=== PATIENT | female | born 1990 | race Caucasian/White ===

== ENCOUNTER → 2020-04-25 13:00 | Outpatient (BNVA) | payer OTHER, SELFPAY | PROVIDERS: Visit Provider Nurse Practitioner | DX: K59.04 Chronic idiopathic constipation (principal); Z79.899 Other long term (current) drug therapy | CPT/HCPCS: Q3014 ==

== ENCOUNTER → 2020-12-29 14:22 | Outpatient (BNVA) | payer OTHER, SELFPAY | PROVIDERS: Visit Provider Nurse Practitioner ==

== ENCOUNTER 2021-03-09 09:52 | Emergency (ER) | payer OTHER, SELFPAY ==
--- NOTE | ~2021-03-09 | XR_ITS ---
EXAMINATION: XR CHEST CLINICAL INFORMATION: Cough and fever COMPARISON: None TECHNIQUE: Frontal view of the chest was obtained. FINDINGS: The lungs are well-expanded and clear. The heart size and pulmonary vascularity is normal. There is mild dextroscoliosis dorsal spine. No lytic process. XR/XR chest 1V IMPRESSION: Unremarkable chest exam. Mild dextroscoliosis dorsal spine. No lytic process.
[2021-03-09 10:04] VITALS: BP 125/80; BP 135/70; PULSE 94; PULSE 97; RESP 20; TEMP 37.6; O2SAT 100; O2SAT 98; BMI 38.9
--- NOTE | 2021-03-09 10:12 | ED.URI ---
HPI - URI/Sore Throat General Chief Complaint: Upper Respiratory Symptoms Stated Complaint: PT STS FEVER,96.6 PER EMS Time Seen by Provider: 03/09/21 10:06 Source: patient and EMS Mode of arrival: EMS Limitations: no limitations History of Present Illness HPI Narrative: 31-year-old female with a history mood disorder, insomnia, constipation, diverticulosis, who presents to the ER from home via ambulance with complaints of fever, shortness of breath, body aches and headache that started yesterday. She reports when she coughs her entire chest wall is sore and aching. She reports her boyfriend is also home and not feeling well. She is not vaccinated for COVID-19. She is not short of breath with exertion. She just does not feel good. She called 911 because her car is broken. MD elicited complaint: fever Onset (ago): day(s) (1) Consistency: constant Severity: moderate Able to tolerate fluids by mouth: Yes Exacerbating factors: nothing Relieving factors: nothing Context: sick contacts Associated symptoms: fever, headache, nasal congestion, sore throat and cough Treatments prior to arrival: none Related Data Home Medications Medication Instructions Recorded Confirmed docusate sodium 100 mg capsule 100 mg PO DAILY 04/25/20 04/25/20 (Colace) methylcellulose (with sugar) oral 1 tbsp PO BID 04/25/20 04/25/20 powder (Citrucel (sucrose)) Allergies Allergy/AdvReac Type Severity Reaction Status Date / Time No Known Allergies Allergy Verified 12/29/20 14:23 Review of Systems Review of Systems: Constitutional: + Fever, No Chills ENT/Mouth: + sore throat, No Rhinorrhea, No Swallowing Difficulty Cardiovascular: No Chest Pain, No SOB Respiratory: No Cough, No Sputum, No Wheezing, No dyspnea Gastrointestinal: No Nausea, No Vomiting, No Diarrhea, No abdominal Pain Genitourinary: No Dysuria, No Urinary Frequency, No Hematuria Musculoskeletal: No joint pain, No Myalgias Skin: No Skin Lesions, No rash Neuro: + Weakness, No Numbness, No Dizziness, + Headache Psych: No Anxiety/Panic, No Depression Heme/Lymph: No Bruising, No Lymphadenopathy PMFSH Past Medical History Attestation statement: The following information was validated with the patient. Medical History Diverticulitis Surgical History Hx of section (12/22/19) Hx of colonoscopy Family History Family History Father Diabetes Mother Alive and well Paternal Grandmother Breast cancer Social History Social History Household Members: Significant Other and Children Alcohol intake: current Alcohol intake frequency: does not drink Advance Directives: No Advance Directives Information Provided: No Physical Exam Vital Signs: Vital Signs: Last Vital Signs Temp 99.7 F 03/09/21 10:04 Pulse 97 03/09/21 10:04 Resp 20 03/09/21 10:04 BP 125/80 03/09/21 10:04 Pulse Ox 98 03/09/21 10:04 Body Mass Index 38.9 Appearance: Alert. Oriented X3. No acute distress. Eyes: Pupils equal, round and reactive to light. ENT: Pharynx normal. Neck: Normal inspection. Neck supple. CVS: Normal heart rate and rhythm. Pulses normal. Respiratory: No respiratory distress. Breath sounds normal. Abdomen: Soft and nontender. +BS x4 Skin: Skin warm and dry. Normal skin color. Normal skin turgor. No rashes. Extremities: No lower extremity edema. Neuro: Oriented X 3. Nonfocal, grossly normal. Course Course Course Narrative: 31-year-old female presents the ER with signs and symptoms of COVID-19. She is not vaccinated. She reports of fever, AMS temperature was 96.6 degrees. She is not vomiting or having abdominal pain. She has minimal shortness of breath and these occurs mostly when she is coughing. She also has some chest discomfort when coughing only. Doubt cardiac etiology. Doubt PE. Perc negative. Will get COVID swab and chest x-ray. Reevaluation(s) Reevaluation #1: Patient was found to be positive for COVID-19. Her chest x-ray is clear. Her oxygen saturations are 98%. She is not in any respiratory distress. Results were discussed with the patient as well as symptomatic management and signs and symptoms to prompt urgent re-evaluation. She is stable for discharge home with supportive care. MDM - URI/Sore Throat Lab Data Labs: Lab Results 03/09/21 Range/Units 10:28 COVID-19 (FLEX) Positive A (Negative) COVID-19 Clin Com See Note Critical Care Time Critical Care Time Critical Care Time: No Discharge Plan Discharge Clinical Impression: COVID-19 Patient Disposition: Home, Self-Care Instructions: Covid-19 Viral Syndrome and Novel Coronavirus (ED) Hey/Ath Additional Instructions: You were found to be COVID-19 POSITIVE today. Your chest x-ray and oxygen levels were normal. Rest. Drink plenty of fluids. Do not go out in public for the next 10 days. Take over the counter cold/flu medications as needed for your symptoms. Take Tylenol and/or Motrin as needed for fevers and body aches. Follow up with your doctor this week. If you shortness of breath worsens , if you develop difficulty breathing or any other concerning symptom come back to the ER for further evaluation. Prescriptions: No Action docusate sodium [Colace] 100 mg capsule 100 mg PO DAILY RF: 0 Citrucel (sucrose) Powder 1 tbsp PO BID RF: 0
[2021-03-09 10:56] LABS: COVID-19 Test Positive (Negative); IDNOW Serial# 9DD0AD1C
[2021-03-09 11:34] VITALS: BP 108/72; PULSE 79; RESP 19; O2SAT 99
[2021-03-09 11:46] LABS: UPreg QC Valid YES; Urine Pregnancy NEGATIVE (NEGATIVE)
== END 2021-03-09 12:16 | disposition home or self-care (01) ==
PROVIDERS: Physician Assistant; Emergency Provider Emergency Medicine; PCP Internal Medicine
DX: U07.1 COVID-19 (principal)
CPT/HCPCS: 36415; 71045; 81025; 87635; 99283

== ENCOUNTER 2021-04-13 13:02 | Outpatient (REF) | payer OTHER, SELFPAY ==
[2021-04-14 14:34] LABS: CT PCR NOT DETECTED (Not Detect.); NG PCR NOT DETECTED (Not Detect.)
[2021-04-15 12:02] LABS: BV Int Neg Control Negative (Negative); BV Int Pos Control Positive (Positive)
[2021-04-19 02:21] LABS: HPV mRNA E6/E7 rflx Not Detected (Not Detected)
== END 2021-04-13 13:03 | disposition home or self-care (01) ==
LOC: HO.LAB 13:02
PROVIDERS: Visit Provider Advanced Practice Midwife
DX: Z01.419 Encounter for gynecological examination (general) (routine) without abnormal findings (principal); E66.01 Morbid (severe) obesity due to excess calories; Z68.42 Body mass index [BMI] 45.0-49.9, adult; Z20.2 Contact with and (suspected) exposure to infections with a predominantly sexual mode of transmission; Z86.32 Personal history of gestational diabetes; Z79.899 Other long term (current) drug therapy
CPT/HCPCS: 87480; 87491; 87510; 87591; 87624; 87660; 88142

== ENCOUNTER 2023-05-31 12:50 | Outpatient (REF) | payer OTHER, SELFPAY ==
[2023-05-31 14:29] LABS: MANUAL DIFF FLAG NO
[2023-05-31 14:35] LABS: Basophils Percent Auto 0.4 % (0-2); Eosinophils Absolute Auto 0.1 X10*3/uL (0.0-0.4); Eosinophils Percent Auto 1.8 % (0-4); Hemoglobin 10.1 g/dl (12.0-16.0); Imm Gran Abs Auto 0.02 X10*3/uL (0.00-0.03); Imm Gran Pct Auto 0.3 % (0.0-0.4); Lymphocytes Absolute Auto 1.8 X10*3/uL (1.2-4.9); Lymphocytes Percent Auto 23.9 % (20-40); Mean Corpuscular HGB Conc 31.6 g/dl (31.0-35.0); Mean Corpuscular Volume 76.2 fL (80.0-98.0); Mean Platelet Volume 11.3 fL (9.4-12.3); Monocytes Absolute Auto 0.6 X10*3/uL (0.1-1.2); Monocytes Percent Auto 7.4 % (2-11); Neutrophils Absolute Auto 4.9 x10*3/uL (2.0-8.3); Neutrophils Percent Auto 66.2 % (45-73); Platelet Count 340 X10*3/uL (160-400); Red Cell Distribution Width 15.6 % (11.0-16.0); White Blood Count 7.4 X10*3/uL (4.8-10.8)
[2023-05-31 15:02] LABS: Alanine Aminotransferase 13 U/L (0-31); Albumin Level 4.1 g/dL (3.5-5.0); Alkaline Phosphatase 86 U/L (39-117); Anion Gap 13 (12-20); Aspartate Amino Transferase 12 U/L (5-31); Bilirubin Total 0.3 mg/dL (0.0-1.0); Blood Urea Nitrogen 8 mg/dL (9-16); Calcium 9.2 mg/dL (8.4-10.2); Carbon Dioxide 25 mmol/L (22-29); Chloride 105 mmol/L (96-108); Cholesterol 112 mg/dL (<200); Estimated Glomerular Filt Rate > 60; Glucose Random 83 mg/dL (60-115); HDL Cholesterol 32 mg/dL (>40); LDL Cholesterol Calculated 64 mg/dL (<100); Potassium 4.1 mmol/L (3.3-5.1); Sodium 139 mmol/L (135-145); Total Protein 7.5 g/dL (6.5-8.0); Triglycerides 80 mg/dL (<150)
[2023-06-03 03:54] LABS: HIV AB/AG Nonreactive (Nonreactive); HIV Num 1 0.05 S/CO (0.00-0.99); ~HepC Num1 0.12 S/CO (0.00-0.79); ~Hepatitis C Antibody Nonreactive (Nonreactive)
== END 2023-05-31 12:51 | disposition home or self-care (01) ==
LOC: HO.CHCLDS 12:50
PROVIDERS: Visit Provider Family Medicine
DX: E66.01 Morbid (severe) obesity due to excess calories (principal)
CPT/HCPCS: 36415; 80053; 80061; 84443; 85025; 86803; 87389

== ENCOUNTER 2024-06-29 10:46 | Outpatient (REF) | payer OTHER, SELFPAY ==
[2024-06-29 14:29] LABS: MANUAL DIFF FLAG NO
[2024-06-29 14:38] LABS: Basophils Absolute Auto 0.1 X10*3/uL (0.0-0.2); Basophils Percent Auto 0.6 % (0-2); Eosinophils Absolute Auto 0.3 X10*3/uL (0.0-0.4); Eosinophils Percent Auto 3.2 % (0-4); Hematocrit 33.8 % (37.0-47.0); Hemoglobin 10.8 g/dl (12.0-16.0); Imm Gran Abs Auto 0.03 X10*3/uL (0.00-0.03); Imm Gran Pct Auto 0.3 % (0.0-0.4); Lymphocytes Absolute Auto 3.2 X10*3/uL (1.2-4.9); Lymphocytes Percent Auto 36.8 % (20-40); Mean Corpuscular Hemoglobin 25.2 pg (27.0-33.0); Mean Platelet Volume 11.5 fL (9.4-12.3); Monocytes Absolute Auto 0.6 X10*3/uL (0.1-1.2); Monocytes Percent Auto 6.9 % (2-11); Neutrophils Absolute Auto 4.6 x10*3/uL (2.0-8.3); Neutrophils Percent Auto 52.2 % (45-73); Platelet Count 313 X10*3/uL (160-400); Red Blood Count 4.28 X10*6/uL (4.20-5.50); Red Cell Distribution Width 17.3 % (11.0-16.0); White Blood Count 8.8 X10*3/uL (4.8-10.8)
[2024-06-29 15:14] LABS: Alanine Aminotransferase 9 U/L (0-31); Anion Gap 15 (12-20); Aspartate Amino Transferase 31 U/L (5-31); Bilirubin Total 0.2 mg/dL (0.0-1.0); Blood Urea Nitrogen 9 mg/dL (9-16); Calcium 9.3 mg/dL (8.4-10.2); Carbon Dioxide 24 mmol/L (22-29); Chloride 107 mmol/L (96-108); Cholesterol 139 mg/dL (<200); Estimated Glomerular Filt Rate > 60; Glucose Random 80 mg/dL (60-115); HDL Cholesterol 57 mg/dL (>40); Iron 23 mcg/dL (30-160); LDL Cholesterol Calculated 61 mg/dL (<100); Percent Iron Saturation 6 % (15-50); Potassium 3.8 mmol/L (3.3-5.1); Sodium 142 mmol/L (135-145); Total Iron Binding Capacity 366 mcg/dL (228-428); Total Protein 7.5 g/dL (6.5-8.0); Triglycerides 107 mg/dL (<150); Unsaturated Iron Binding 343 ug/dL
[2024-06-29 15:27] LABS: Ferritin 6 ng/mL (10-122); TSH reflex Free T4 2.44 uIU/mL (0.32-4.0)
--- OUTSIDE RECORDS SUMMARY | 2024-06-29 15:34 | XMS_ITS | Encounter Summary ---
Author Organization [employer] Address [address] [facility] [address] [place] [address] Care Team Providers Care Skein Spooler Name Role Phone Lucy Whitlock MD Primary Care Provider [phone] Reason for Visit * Reason Onset Date Comments Referral 03/17/2024 Encounter Details Date Type Department Care Team ([facility] st Contact Info) Description 03/17/2024 Telephone [facility] MEDICINE [address] [place] [address] Lucy Whitlock MD [address] [place] [address] Referral Social History Tobacco Use Types Packs/Day Years Used Date Smoking Tobacco: Never Passive Smoke Exposure: Never Smokeless Tobacco: Never Alcohol Use Standard Drinks/Week Comments Never 0 (1 standard drink = 0.6 oz pur e alcohol) Depression Answer Date Recorded Patient Health Questionnaire-9 Score 10 05/31/2023 Patient Health Questionnaire-9 Score 10 05/31/2023 Last PHQ-9: Questionnaire Data Not on file 1 Housing Stability Answer Date Recorded What is your housing situation today? I have nora hoang 05/21/[address] you li ve. Do you have problems with any of the following? None of the above 05/21/2023 Food Insecurity Answer Date Recorded Within the past 12 months, y ou worried that your food would run out before you got money to buy more: Never True 05/21/2023 Within the past 12 months,th e food you bought just didn't last and you didn't have enough money to get more: Never True Transportation Answer Date Recorded In the past 12 months, has l ack of transportation kept you from medical appts, meetings, work or from getting things needed for daily living? No 05/21/2023 Utilities Answer Date Recorded In the past 12 months, has t he electric, gas, oil or water company threatened to shut off services in your home? No 05/21/2023 Depression Answer Date Recorded Patient Health Questionnaire-2 Score 3 05/31/2023 Comments Unknown Sex and Gender Information Value Date Recorded Sex Assigned at Female 04/02/2022 10:14 AM EDT Legal Sex Female 10:14 AM EDT Gender Identity Female 04/02/2022 10:14 AM EDT Sexual Orientation Choose not to disclose 2021 10:14 AM EDT documented as of this encounter Miscellaneous Notes * Telephone Encounter - Bronwyn Ribeiro RN - 03/20/2024 10:35 AM EDT Referral placed to [facility] eye care for routine eye exam. * Telephone Encounter - Sami Salamanca - 03/17/2024 11:12 AM EDT Tc from patient request a referral for the vision center there is no concerns at the moment documented in this encounter Plan of Treatment Upcoming Encounters Date Type Department Care Team (Late st Contact Info) Description 07/30/2024 11:00 AM EST Procedure Visit [facility] CHC MED & PEDS [address] [place] [address] Estelle Carbajal, CNM [address] [place] [address] 10/08/2024 2:30 PM EDT Office Visit [facility] OPTOMETRY [address] [place] [address] Melonie Islas, OD [address] [place] [address] documented as of this encounter Visit Diagnoses Not on filedocumented in this encounter Additional Health Concerns Assessment Noted Time PHQ-9 Depression Total Score: 10 023 11:41 AM EST documented as of this encounter Care Teams Skein Spooler Relationship Specialty Start Date End Date Lucy Whitlock MD [address] [place] [address] PCP - General Family Medicine 02/07/22 Markus Casillas NP Nurse Practitioner Psychiatry 05/31/23 documented as of this encounter
--- OUTSIDE RECORDS SUMMARY | 2024-06-29 15:35 | XMS_ITS | Encounter Summary ---
Author Organization [employer] [facility] Address [address] [place] [address] Care Team Providers Care Pantograph Ii Engraver Name Role Phone Lucy Whitlock MD Primary Care Provider [phone] Encounter Details Date Type Department Care Team (Late st Contact Info) Description 05/01/2022 Abstract [facility] MEDICINE [address] [place] [address] Provider, MD Flynn Social History Tobacco Use Types Packs/Day Years Used Date Smoking Tobacco: Never Assessed Comments Unknown Sex and Gender Information Value Date Recorded Sex Assigned at Female 04/02/2022 10:14 AM EDT Legal Sex Female 10:14 AM EDT Gender Identity Female 04/02/2022 10:14 AM EDT Sexual Orientation Choose not to disclose 2021 10:14 AM EDT documented as of this encounter Plan of Treatment Upcoming Encounters Date Type Department Care Team (Late Contact Info) Description 07/30/2024 11:00 AM EST Procedure Visit [facility] CHC MED & PEDS [address] [place] [address] Estelle Carbajal CNM [address] [place] [address] 10/08/2024 2:30 PM EDT Office Visit [facility] OPTOMETRY [address] [place] [address] Melonie Islas OD [address] [place] [address] documented as of this encounter Visit Diagnoses Not on filedocumented in this encounter Care Teams Pantograph Ii Engraver Relationship Specialty Start Date End Date Lucy Whitlock MD [address] [place] [address] PCP - General Family Medicine 02/07/22 Markus Casillas NP Nurse Practitioner Psychiatry 05/31/23 documented as of this encounter
--- OUTSIDE RECORDS SUMMARY | 2024-06-29 15:35 | XMS_ITS | Encounter Summary ---
Author Organization [employer] Address [address] [place] [address] [address] [address] Care Team Providers Care Occupational Health Physician Name Role Phone Lucy Whitlock MD Primary Care Provider [phone] Reason for Visit * Reason Comments Constipation Extended office visit Encounter Details Date Type Department Care Team ([facility] Contact Info) Description 06/29/2024 9:30 AM EST Office Visit [facility] [address] [place] [address] Jarocho Dela Cruz MD [address] [place] [address] Other constipation (Primary Dx); Other iron deficiency anemia; Dietary counseling; Exercise counseling; Class 3 severe obesity due to excess calories with serious comorbidity and body mass index (BMI) of 45.0 to 49.9 in adult (CMS/HCC); Bilateral impacted cerumen; Encounter for immunization Social History Tobacco Use Types Packs/Day Years Used Date Smoking Tobacco: Never Passive Smoke Exposure: Never Smokeless Tobacco: Never Alcohol Use Standard Drinks/Week Comments Never 0 (1 standard drink = 0.6 oz pur e alcohol) Depression Answer Date Recorded Patient Health Questionnaire-9 Score 11 06/29/2024 Patient Health Questionnaire-9 Score 11 06/29/2024 Last PHQ-9: Questionnaire Data Not on file 0 06/29/2024 Housing Stability Answer Date Recorded What is [...] from getting things needed for daily living? Yes, it has kept me from medical appointments or getting medications. 06/29/2024 Utilities Answer Date Recorded In the past 12 months, has t he [employer], gas, oil or water company threatened to shut off services in your home? No 05/21/2023 Depression Answer Date Recorded Patient Health Questionnaire-2 Score 2 06/29/2024 Internet Access Answer Date Recorded Internet Access Q1 Yes 06/18/2024 Internet Access Q2 Not on file 06/18/2024 Comments Unknown Sex and Gender Information Value Date Recorded Sex Assigned at Female 04/02/2022 10:14 AM EDT Legal Sex Female 10:14 AM EDT Gender Identity Female 04/02/2022 10:14 AM EDT Sexual Orientation Choose not to disclose 2021 10:14 AM EDT documented as of this encounter Last Filed Vital Signs Vital Sign Reading Time Taken Comments Blood Pressure 129/77 06/29/2024 9:50 AM EST Pulse 92 06/29/2024 9:50 AM EST Temperature 36.8 ??C (98.2 ??F) 06/29/2024 9:50 AM ES T Respiratory Rate 20 06/29/2024 9:50 AM EST Oxygen Saturation 98% 06/29/2024 9:50 AM EST Inhaled Oxygen Concentration - - Weight 112 kg (247 lb) 06/29/2024 9:50 AM EST Height 157.5 cm (5' 2 ) 06/29/2024 9:50 AM EST Body Mass Index 45.18 06/29/2024 9:50 AM EST documented in this encounter Progress Notes * Jarocho Dela Cruz MD - 06/29/2024 9:30 AM EST Subjective Patient ID: Coco Tejeda is a 34 y.o. female who presents for Constipation and Extended office visit. Constipation Pertinent negatives include no diarrhea or difficulty urinating. Denies any acute events since her last visit. Only complaining of constipation. Patient admits her diet poor in fiber and not drinking water. Patient Active Problem List Diagnosis Diverticula of intestine Iron deficiency anemia Mood disorder (CMS/HCC) Morbid obesity (CMS/HCC) Anxiety and depression Learning disability Developmental delay disorder Sleep apnea in adult Current Outpatient Medications on File Prior to Visit Medication Sig Dispense Refill clobetasol (Temovate) 0.05 % ointment Apply topically 2 times daily. 60 g 2 FLUoxetine (PROzac) 20 MG capsule Take 20 mg by mouth in the morning. fluticasone (Flonase) 50 MCG/ACT nasal spray TAKE 1 SPRAYS IN EACH NOSTRIL 2 TIMES PER DAY FOR 30 DAYS naproxen (Naprosyn) 500 MG tablet TAKE 1 TABLET BY MOUTH TWICE A DAY 60 tablet 0 traZODone (Desyrel) 50 MG tablet Take 50 mg by mouth if needed at bedtime. No current facility-administered medications on file prior to visit. Review of Systems Constitutional: Negative for activity change, appetite change, chills and diaphoresis. HENT: Negative for dental problem, drooling, ear discharge, ear pain and hearing loss. Eyes: Negative for pain, discharge and itching. Respiratory: Negative for cough, choking and chest tightness. Cardiovascular: Negative for chest pain and leg swelling. Gastrointestinal: Positive for constipation. Negative for blood in stool and diarrhea. Genitourinary: Negative for difficulty urinating, dyspareunia, dysuria, enuresis, flank pain, frequency and genital sores. Musculoskeletal: Negative for arthralgias, gait problem and joint swelling. Skin: Negative for pallor. Neurological: Negative for dizziness, seizures, speech difficulty, light- headedness and numbness. Psychiatric/Behavioral: Negative for behavioral problems, confusion and decreased concentration. Objective BP 129/77 (BP Location: Left arm, Patient Position: Sitting, BP Cuff Size: Adult) Pulse 92 Temp98.2 ??F (36.8 ??C) (Oral) Resp 20 Ht 5' 2 (1.575 m) Wt 247 lb (112 kg) SpO2 98% BMI 45.18 kg/m?? Physical Exam Constitutional: General: She is not in acute distress. Appearance: Normal appearance. She is obese. She is not ill-appearing, toxic- appearing or diaphoretic. Cardiovascular: Rate and Rhythm: Normal rate. Pulmonary: Effort: Pulmonary effort is normal. Abdominal: General: Abdomen is flat. Skin: General: Skin is warm. Neurological: General: No focal deficit present. Mental Status: She is alert. Psychiatric: Mood and Affect: Mood normal. Assessment/Plan Diagnoses and all orders for this visit: Other constipation Comments: Increase fluid intake and fiber intake Orders: - bisacodyl (Dulcolax) 5 MG EC tablet; Take 1 tablet (5 mg) by mouth if needed each day for constipation. Do not crush, chew, or split. Other iron deficiency anemia Comments: a work up was ordered. Not done yeat Pt urged to hae her blood work today. Further management depending on the results. Dietary counseling Exercise counseling Class 3 severe obesity due to excess calories with serious comorbidity and body mass index (BMI) of45.0 to 49.9 in adult (CMS/[facility]) Discussed calorie deficit, recommended reduction of 20-30% of maintenance calories; pharmacy coordinator referral offered. Recommended to decrease soda and sugary beverage consumption. Recommended at least 20 g per meal of protein to assist with satiety. Recommended at least 150 min/week of moderate intensity exercise. Bilateral impacted cerumen - carbamide peroxide (Debrox) 6.5 % otic solution; Administer 5-10 drops into affected ear(s) 2 times daily for 4 days. Encounter for immunization - FLU VACCINE TRIVALENT (Fluarix) 6 mo + - COVID-19 VACCINE (Pfizer) [id number] 12 yrs + documented in this encounter Plan of Treatment Upcoming Encounters Date Type Department Care Team (Late st Contact Info) Description 07/30/2024 11:00 AM EST Procedure Visit [facility] CHC MED & PEDS [address] [place] [address] Estelle Carbajal, C[facility]COM [address] [place], [place] [id number] 10/08/2024 2:30 PM EDT Office Visit [facility] OPTOMETRY [address] [place] [address] Melonie Islas, OD [address] [place] [address] documented as of this encounter Visit Diagnoses Diagnosis Other constipation- Primary Other iron deficiency anemia Dietary counseling Dietary surveillance and counseling Exercise counseling Class 3 severe obesity due to excess calories with serious comorbidity and body mass index (BMI) of 45.0 to 49.9 in adult (CMS/[facility]) Bilateral impacted cerumen Impacted cerumen Encounter for immunization documented in this encounter Additional Health Concerns Assessment Noted Time PHQ-9 Depression Total Score: 11 025 10:45 AM EST documented as of this encounter Care Teams Occupational Health Physician Relationship Specialty Start Date End Date Lucy Whitlock MD [address] [place] [address] PCP - General Family Medicine 02/07/22 Markus Casillas NP Nurse Practitioner Psychiatry 05/31/23 documented as of this encounter
--- OUTSIDE RECORDS SUMMARY | 2024-06-29 15:35 | XMS_ITS | Clinical Summary ---
Author Organization [facility] ity Address [address] [place] [address] Care Team Providers Care Mathematician Research Name Role Phone Unavailable Primary Care Provider Unavailabl e Encounters Date Type Department Care Team Description 03/30/2024 1:18 PM EDT - 03/30/2024 6:39 PM EDT Emergency [facility] Emergency [address] [place] [phone] Vinicius Gregory MD Pneumonia, unspecified organism Discharge Disposition: Home or Self Care from Last 3 Months Social History Tobacco Use Types Packs/Day Years Used Date Smoking Tobacco: Never Assessed Sex and Gender Information Value Date Recorded Sex Assigned at Not on file Gender Identity Not on file Sexual Orientation Not on file Plan of Treatment Health Maintenance Due Date Last Done Comments DTaP,Tdap,and Td Vaccines (1 - Tdap) 02/21/2008 Hepatitis B Vaccines (1 of 3 - 19+ 3-dose series) 02/21/2008 Cervical Cancer Screening: P ap Smear 2010 Depression Screening 06/27/2023 HIV Screening 06/27/2023 Hepatitis C Screening 06/27/2023 Social Influencers of Health Screening 06/27/2023 COVID-19 Vaccine (1 - 2023-2 5 season) 2024 Influenza Vaccine (#1) 2024 HIB Vaccines Aged Out No longer eligi ble based on patient's age to complete this topic HPV Vaccines Aged Out No longer eligi ble based on patient's age to complete this topic Hepatitis A Vaccines Aged Out No long er eligible based on patient's age to complete this topic IPV Vaccines Aged Out No longer eligi ble based on patient's age to complete this topic MMR Vaccines Aged Out No longer eligi ble based on patient's age to complete this topic Meningococcal ACWY Vaccine Aged Out N o longer eligible based on patient's age to complete this topic Pneumococcal Vaccine: Pediat rics (0 to 5 Years) and At-Risk Patients (6 to 64 Years) Aged Out No longer eligible b ased on patient's age to complete this topic RSV Immunization Patients Un andrew 20 months Aged Out No longer eligible b ased on patient's age to complete this topic Varicella Vaccines Aged Out No longer eligible based on patient's age to complete this topic Procedures Procedure Name Priority Date/Time Associated Diagnosis Comments ELECTROCARDIOGRAM Routine 03/30/2024 3:1 8 PM EDT Pneumonia, unspecified organism DR CHEST ROUTINE 2 VIEWS Routine 024 3:05 PM EDT Pneumonia, unspecified organism ECG 03/30/2024 from Last 3 Months Results * Electrocardiogram (03/30/2024 3:18 PM EDT) 03/30/2024 1:10 PM EDT Narrative CV HISTORICAL RESULTS - 03/30/2024 3:18 PM EDT [facility] Cardiology Department [address] [place] [address] ?? [id number] Cardiology Patient: ?? COCO TEJEDA Unit #: ?? [id number] Location: ?? SPER Status: ?? REG ER Date Of : ?? 1990 ?? 34 ?? F Ordering Physician: ?? ER,DOC Order Date/Time: ??03/30/24 1310 Performed Date/Time: ??03/30/24 1329 Electrocardiogram Test Reason : Pain Blood Pressure : / mmHG Vent. Rate : 097 BPM ? Atrial Rate : 097 BPM P-R Int : 156 ms ?QRS Dur : 074 ms QT Int : 328 ms ? P-R-T Axes : 043 028 045 degrees QTc Int : 416 ms Normal sinus rhythm Normal ECG When compared with ECG of 25-JAN-2023 13:42, No significant change was found Confirmed by Jared BOLIVAR JOHN ([id number]) on 03/30/2024 3:17:43 PM Referred By: ??ERDOC ? Confirmed By:TERESA BOLIVAR M.D. Dictating Provider: ??TERESA BOLIVAR MD Transcribed by: ?? JM Transcribed Date: Procedure Note Teresa Bolivar MD - 04/04/2024 [facility] Cardiology Department [address] [place] [address] Cardiology Patient: COCO TEJEDA Unit #: [id number] Location: SPER Status: REG ER Date Of : 1990 34 F Ordering Physician: CHEO HICKS Order Date/Time: 03/30/24 1310 Performed Date/Time: 03/30/24 1329 Electrocardiogram Test Reason : Pain Blood Pressure : / mmHG Vent. Rate : 097 BPM Atrial Rate : 097 BPM P-R Int : 156 ms QRS Dur : 074 ms QT Int : 328 ms P-R-T Axes : 043 028 045 degrees QTc Int : 416 ms Normal sinus rhythm Normal ECG When compared with ECG of 25-JAN-2023 13:42, No significant change was found Confirmed by Jared BOLIVAR JOHN ([id number]) on 03/30/2024 3:17:43 PM Referred By: CATHY Confirmed By:TERESA BOLIVAR M.D. Dictating Provider: TERESA BOLIVAR MD Transcribed by: VINICIO Transcribed Date: Cardiovascular Results Historical MD CV HISTORICAL CONV PROCEDURES CV HISTORICAL RESULTS * CHEST ROUTINE 2 VIEWS (03/30/2024 3:05 PM EDT) Anatomical Region Laterality Modality Radiographic Leida ging 03/30/2024 1:10 PM EDT Narrative 03/30/2024 3:05 PM EDT [facility] Diagnostic Imaging Department [address] [place], [place] [id number] Patient: ??BIGIO,COCO ?/Age/Sex: 1990 - 34 - Unit#: ??[id number] ? Location/Status: ??SPER/REG ER ? Mnemonic/Ordering Site: ??CHESTXR/SPMAIN Ordering Physician: ??ER,DOC DR Chest Routine 2 Views - 03/30/241442 Report Status:Signed DR Chest Routine 2 Views INDICATION: ??Pain TECHNIQUE: DR Chest Routine 2 Views COMPARISON: 01/25/2023 FINDINGS/IMPRESSION: Patchy opacity in the right upper lobe suspicious for pneumonia. ??No pleural effusion or pneumothorax. ??Cardiac silhouette is enlarged. ??Mild degenerative change seen throughout the bones. Dictating Physician: ??TIP ALBA MD Electronically Signed by: ??TIP ALBA MD Dic Date/Time: ??03/30/24 9969 Sign date/Time: ??03/30/24 6478 Procedure Note Tip Alba MD - 04/04/2024 [facility] Diagnostic Imaging Department [address] [place] [address] Patient: COCO TEJEDA /Age/Sex: 1990 - 34 - F Unit#: [id number] Location/Status: SPER/REG ER Mnemonic/Ordering Site: CHESTXR/SPMAIN Ordering Physician: ER,DOC DR Chest Routine 2 Views - 03/30/24 - 1442 Report Status:Signed DR Chest Routine 2 Views INDICATION: Pain TECHNIQUE: DR Chest Routine 2 Views COMPARISON: 01/25/2023 FINDINGS/IMPRESSION: Patchy opacity in the right upper lobe suspiciousfor pneumonia. No pleural effusion or pneumothorax. Cardiac silhouette is enlarged. Mild degenerative change seen throughout the bones. Dictating Physician: TIP ALBA MD Electronically Signed by: TIP ALBA MD Dic Date/Time: 03/30/24 1456 Sign date/Time: 03/30/24 1505 Radiology Results Historical IMG XR P ROCEDURES * ECG (03/30/2024) Provider Onbase CV HISTORICAL CONV P ROCEDURES from Last 3 Months
--- OUTSIDE RECORDS SUMMARY | 2024-06-29 15:35 | XMS_ITS | Encounter Summary ---
Author Organization [employer] Address [address] [facility] [address] [place] [address] Care Team Providers Care Retaining Room Cutter Name Role Phone Lucy Whitlock MD Primary Care Provider [phone] Reason for Visit * Reason Comments Pre-visit Planning SDOH negative, Tobac co screening negative. Encounter Details Date Type Department Care Team ([facility] Contact Info) Description 06/18/2024 Patient Outreach [facility] MED & PEDS [address] [place], [place] [phone] Lucy Whitlock MD [address] [place] [address] Pre-visit Planning (SDOH negative, Tobacco screening negative. ) Social History Tobacco Use Types Packs/Day Years Used Date Smoking Tobacco: Never Passive Smoke Exposure: Never Smokeless Tobacco: Never Alcohol Use Standard Drinks/Week Comments Never 0 (1 standard drink = 0.6 oz pur e alcohol) Depression Answer Date Recorded Patient Health Questionnaire-9 Score 2 05/07/2024 Patient Health Questionnaire-9 Score 2 05/07/2024 Last PHQ-9: Questionnaire Data Not on file 1 07/08/2023 Housing Stability Answer Date Recorded What is [...] Answer Date Recorded Patient Health Questionnaire-2 Score 0 05/07/2024 Internet Access Answer Date Recorded Internet Access Q1 Yes 06/18/2024 Internet Access Q2 Not on file 06/18/2024 Comments Unknown Sex and Gender Information Value Date Recorded Sex Assigned at Female 04/02/2022 10:14 AM EDT Legal Sex Female 10:14 AM EDT Gender Identity Female 04/02/2022 10:14 AM EDT Sexual Orientation Choose not to disclose 2021 10:14 AM EDT documented as of this encounter Progress Notes * Amber Boston - 06/18/2024 10:32 AM EST CC Amber Chen placed successful outbound call to patient for pre-visit planning. Patient name and confirmed. Patient confirms appt date and time, and has transportation arrangements. Biggest concern for appointment at this time is diverticulitis. Appropriate screenings completed in anticipationof appointment. documented in this encounter Plan of Treatment Upcoming Encounters Date Type Department Care Team (Late st Contact Info) Description 07/30/2024 11:00 AM EST Procedure Visit [facility] MED [facility] PEDS [address] [place] [address] Estelle Carbajal, CNM [address] [place] [address] 10/08/2024 2:30 PM EDT Office Visit [facility] OPTOMETRY [address] [place] [address] Melonie Islas, OD [address] [place] [address] documented as of this encounter Visit Diagnoses Not on filedocumented in this encounter Additional Health Concerns Assessment Noted Time PHQ-9 Depression Total Score: 2 05/07/20 24 2:33 PM EST documented as of this encounter Care Teams Retaining Room Cutter Relationship Specialty Start Date End Date Lucy Whitlock MD [address] [place] [address] PCP - General Family Medicine 02/07/22 Markus Casillas NP Nurse Practitioner Psychiatry 05/31/23 documented as of this encounter
--- OUTSIDE RECORDS SUMMARY | 2024-06-29 15:35 | XMS_ITS | Encounter Summary ---
Author Organization [employer] Address [address] [facility] [address] [place] [address] Care Team Providers Care Scratch Brusher Name Role Phone Lucy Whitlock MD Primary Care Provider Encounter Details Date Type Department Care Team (Latest Contact Info) Description 06/29/2024 Travel Social History Tobacco Use Types Packs/Day Years [...] Description 07/30/2024 11:00 AM EST Procedure Visit [facility] CHC MED & PEDS [address] [place] [address] Estelle Carbajal CNM [address] [place] [address] 10/08/2024 2:30 PM EDT Office Visit [facility] OPTOMETRY [address] [place] [address] Roshan, Melonie, OD [address] [place] [address] documented as of this encounter Visit Diagnoses Not on filedocumented in this encounter Additional Health Concerns Assessment Noted Time PHQ-9 Depression Total Score: 11 025 10:45 AM EST documented as of this encounter Care Teams Scratch Brusher Relationship Specialty Start Date End Date Lucy Whitlock MD [address] [place] [address] PCP - General Family Medicine 02/07/22 Markus Casillas NP Nurse Practitioner Psychiatry 05/31/23 documented as of this encounter
--- OUTSIDE RECORDS SUMMARY | 2024-06-29 15:35 | XMS_ITS | Clinical Summary ---
Author Organization [employer] Address [address] [place] [address] 7 [place] [address] Care Team Providers Care Ivory Polisher Name Role Phone Lucy Whitlock MD Primary Care Provider [phone] Allergies No known active allergies Medications traZODone (Desyrel) 50 MG tablet Take 50 mg by mouth if needed at bedtime. 3 Active FLUoxetine (PROzac) 20 MG capsule Take 20 mg by mouth in the morning. 3 Active clobetasol (Temovate) 0.05 % ointment Apply topically 2 times daily. 60 g 2 4 Active fluticasone (Flonase) 50 MCG/ACT nasal spray TAKE 1 SPRAYS IN EACH NOSTRIL 2 TIMES PER DAY FOR 30 DAYS 4 Active naproxen (Naprosyn) 500 MG tablet TAKE 1 TABLET BY MOUTH TWICE A DAY 60 tablet 4 Active bisacodyl (Dulcolax) 5 MG EC tabletIndications :Other constipation Take 1 tablet (5 mg) by mouth if needed each day for constipation. Do not crush, chew, or split. 30 tablet 5 07/29/19 25 Active carbamide peroxide (Debrox) 6.5 % otic solutionIndicatio ns:Bilateral impacted cerumen Administer 5-10 drops into affected ear(s) 2 times daily for 4 days. 30 mL 5 07/03/19 25 Active Active Problems Problem Noted Date Diagnosed Date Developmental delay disorder 05/31/2023 Sleep apnea in adult 05/31/2023 Assessment & Plan (05/07/2024 2:39 PM EST): 33 yo F with a hx of loud snoring, sleepiness during they day and apneic episodes, neck circumference of 41 cm, she is morbidly obese, test for sleep apnea, send to [facility] Assessment & Plan (06/04/2023 2:05 PM EST): STOP-BANG high risk, will send for home sleep study, + apneic episodes, snoring, daytime sleepiness Anxiety and depression 01/08/2023 Assessment & Plan (05/07/2024 3:08 PM EST): Continue to follow up with Therapist and Psychiatrist. Learning disability 01/08/2023 Iron deficiency anemia 05/04/2022 Assessment & Plan (05/07/2024 3:07 PM EST): Will order lab work for further evaluation and assess post results if iron supplements are still needed. Diverticula of intestine 01/11/2017 Assessment & Plan (05/07/2024 2:51 PM EST): 33 yo F with a hx of diverticulosis, request referral to GI in [facility] Assessment & Plan (06/04/2023 2:04 PM EST): Patient requested GI referral, prior hx of diverticulosis, not current symptomatic. Mood disorder 01/11/2017 Morbid obesity 01/11/2017 Assessment & Plan (06/04/2023 2:05 PM EST): Discussed calorie deficit, recommended reduction of 20-30% of maintenance calories; captain/check airman referral offered. Recommended to decrease soda and sugary beverage consumption. Recommended at least 20 g per meal of protein to assist with satiety. Recommended at least 150 min/week of moderate intensity exercise. Encounters Date Type Department Care Team Description 06/29/2024 9:30 AM EST Office Visit [facility] [address] [place] [address] Jarocho Dela Cruz MD Other constipation (Primary Dx); Other iron deficiency anemia; Dietary counseling; Exercise counseling; Class 3 severe obesity due to excess calories with serious comorbidity and body mass index (BMI) of 45.0 to 49.9 in adult (CMS/HCC); Bilateral impacted cerumen; Encounter for immunization 06/29/2024 Travel 06/18/2024 Patient Outreach [facility] [address] [place] [address] Lucy Whitlock MD Pre-visit Planning (SDOH negative, Tobacco screening negative. ) 05/07/2024 2:30 PM EST Telemedicine [facility] [address] [place] [address] Lucy Whitlock MD Sleep apnea in adult (Primary Dx); Dietary counseling; Exercise counseling; Class 3 severe obesity with serious comorbidity and body mass index (BMI) of 40.0 to 44.9 in adult, unspecified obesity type ([facility]/HCC); Iron deficiency anemia, unspecified iron deficiency anemia type; Morbid obesity ([facility]/HCC); Anxiety and depression; Blurry vision, bilateral; Diverticula of intestine 05/07/2024 Telephone [facility] [address] [place] [address] Lucy Whitlock MD 05/07/2024 Travel 04/28/2024 Travel 04/21/2024 Refill [facility] [address] [place] [address] Lucy Whitlock MD 04/16/2024 Telephone [facility] [address] [place] [address] Lucy Whitlock MD No Show 04/14/2024 Telephone [facility] [address] [place] [address] Lucy Whitlock MD CHART PREP 04/09/2024 Patient Outreach [facility] [address] [place] [address] Lucy Whitlock MD Pre-visit Planning (SDOH screening completed on 08/30/2023./) 03/31/2024 Telephone [facility] [address] [place] [phone] Lucy Whitlock MD Nurse Triage from Last 3 Months Immunizations Name Administration Dates Next Due DTP 09/25/1993, 2,02/17/1990,1989,1989 DTaP 05/27/2012 HPV, Quadrivalent 05/10/2011,11/21/2010,09/22/19 11 Hep B, Adolescent or Pediatric 09/24/2001,2000,07/26/2000 Hib (HbOC) 07/08/1991 IPV 09/25/1993, 2,1989,1988 Influenza injectable quadriv alent IIV4 with preservative 05/16/2015 Influenza injectable quadriv alent preservative free 05/31/2023,03/30/2019,05/15/2018,2016,04/17/2016 Influenza, Split (incl. margaret fied surface antigen) 05/14/2013 Influenza, seasonal, injecta ble, preservative free 06/29/2024,05/27/2012 Influenza, trivalent, adjuvanted 05/27/2012 MMR 06/19/2016,03/05/1995,07/08/1991 Pfizer Covid-19 Vaccine 12+ 06/29/2024 TD (adult), 2 Lf tetanus tox oid, preservative free, adsorbed 12/02/2001 Tdap 11/24/2019,04/17/2016,05/27/2012 Social History Tobacco Use Types Packs/Day Years Used Date Smoking Tobacco: Never Passive Smoke Exposure: Never Smokeless Tobacco: Never Tobacco Cessation:Counseling Given: Not Answered Alcohol Use Standard Drinks/Week Comments Never 0 [...] not to disclose 2021 10:14 AM EDT Last Filed Vital Signs Vital Sign Reading [...] Mass Index 45.18 06/29/2024 9:50 AM EST Plan of Treatment Upcoming Encounters Date Type Department Care Team (Late st Contact Info) Description 07/30/2024 11:00 AM EST Procedure Visit [facility] [address] [place] [address] Estelle Carbajal, LILIANA [address] [place] [address] 10/08/2024 2:30 PM EDT Office Visit [facility] OPTOMETRY [address] [place] [address] Melonie Islas, OD [address] [place] [address] Health Maintenance Due Date Last Done Comments Dental Oral Exam 1989 Dental Prophylaxis 1989 Dental X-Ray: Bitewings 1989 Dental X-Ray: Full Mouth 1989 Family Planning (PISQ) 02/21/2004 Pap Smear 2010 Cervical Cancer Screening 2019 HPV/Cotest 2019 Depression Monitoring (PHQ-9) 12/27/2024 06/29/2024, 06/29/2024 Alcohol/Substance Use Screening 06/29/2025 06/29/2024 Depression Screening 06/29/2025 06/29/2024, 06/29/19 SDOH Screening 06/29/2025 06/29/2024 Tobacco Screening 06/29/2025 06/29/2024 Lipid Panel 05/31/2028 06/29/2024, 05/31/2023 DTaP/Tdap/Td Vaccines (10 - Td or Tdap) 11/23/2029 11/24/2019, 04/17/2016, 05/27/2012, Additional history exists Zoster Vaccines (1 of 2) 2039 RSV Patients and Patients Aged 60 years or older (1 - 1-dose 75+ series) 02/21/2064 HIB Vaccines Completed 07/08/1991 IPV Vaccines Completed 09/25/1993, 10/1991, 1989, Additional history exists Hepatitis B Vaccines Completed 09/24/2001, 08/26/2000, 07/26/2000 HPV Vaccines Completed 05/10/2011, 11/02, 09/21/2010 HIV Screening Completed 05/31/2023, 06/26/2019 Hepatitis C Screening Completed 05/31/2023, 020 COVID-19 Vaccine Completed 06/29/2024 Influenza Vaccine Completed 06/29/2024, , 03/30/2019, Additional history exists Hepatitis A Vaccines Aged Out No long er eligible based on patient's age to complete this topic Meningococcal Vaccine Aged Out No tobias clary eligible based on patient's age to complete this topic Pneumococcal Vaccine: Pediatrics (0 to 5 Years) and At-Risk Patients (6 to 64 Years) Aged Out No longer eligible based on patient's age to complete this topic RSV under 20 months Aged Out No longe r eligible based on patient's age to complete this topic Rotavirus Vaccines Aged Out No longer eligible based on patient's age to complete this topic Procedures Procedure Name Priority Date/Time Associated Diagnosis Comments TSH W/REFLEX TO FT4 Routine 06/29/2024 1 0:47 AM EST Class 3 severe obesity with serious comorbidity and body mass index (BMI) of 40.0 to 44.9 in adult, unspecified obesity type (CMS/HCC) IRON AND TOTAL IRON BINDING CAPACITY Routine 06/29/2024 10:47 AM EST Sleep apnea in adult FERRITIN Routine 06/29/2024 10:47 AM EST Sleep apnea in adult LIPID PANEL, STANDARD Routine 06/29/2024 10:47 AM EST Class 3 severe obesity with serious comorbidity and body mass index (BMI) of 40.0 to 44.9 in adult, unspecified obesity type (CMS/HCC) COMPREHENSIVE METABOLIC PANEL Routine 06/29/2024 10:47 AM EST Class 3 severe obesity with serious comorbidity and body mass index (BMI) of 40.0 to 44.9 in adult, unspecified obesity type (CMS/HCC) CBC WITH AUTO DIFFERENTIAL Routine 06/29/2024 10:47 AM EST Class 3 severe obesity with serious comorbidity and body mass index (BMI) of 40.0 to 44.9 in adult, unspecified obesity type (CMS/HCC) Sleep apnea in adult HEPATITIS C AB W/REFL TO HCV RNA, QN, PCR Routine 05/31/2023 12:52 PM EST Encounter for health-related screening HIV 1/2 ANTIGEN/ANTIBODY, FOURTH GENERATION W/RFL Routine 05/31/2023 12:52 PM EST Encounter for health-related screening from Last 3 Months or Most Recently Relevant to Health Maintenance Results * (ABNORMAL) CBC auto differential (06/29/2024 10:47 AM EST) White Blood Count 8.8 4.8 - 10.8 X10*3/uL [facility] Red Blood Count 4.28 4.20 - 5.50 X10*6/uL [facility] Hemoglobin 10.8(L) 12.0 - 16.0 g/dl [facility] Hematocrit 33.8(L) 37.0 - 47.0 % [facility] Mean Corpuscular Volume 79.0(L) 80.0 - 98.0 fL [facility] Mean Corpuscular Hemoglobin 25.2(L) 27.0 - 33.0 pg [facility] Mean Corpuscular HGB Conc 32.0 31.0 - 35.0 g/dl [facility] Red Cell Distribution Width 17.3(H) 11.0 - 16.0 % [facility] Platelet Count 313 160 - 400 X10*3/uL [facility] Mean Platelet Volume 11.5 9.4 - 12.3 fL [facility] Neutrophils Percent Auto 52.2 45 - 73 % [facility] Imm Gran Pct Auto 0.3 0.0 - 0.4 % [facility] Lymphocytes Percent Auto 36.8 20 - 40 % [facility] Monocytes Percent Auto 6.9 2 - 11 % [facility] Eosinophils Percent Auto 3.2 0 - 4 % [facility] Basophils Percent Auto 0.6 0 - 2 % [facility] NRBC Pct Auto 0.0 0.0 - 0.2 /100WBC [facility] Neutrophils Absolute Auto 4.6 2.0 - 8.3 x10*3/uL [facility] Imm Gran Abs Auto 0.03 0.00 - 0.03 X10*3/uL [facility] Lymphocytes Absolute Auto 3.2 1.2 - 4.9 X10*3/uL [facility] Monocytes Absolute Auto 0.6 0.1 - 1.2 X10*3/uL [facility] Eosinophils Absolute Auto 0.3 0.0 - 0.4 X10*3/uL [facility] Basophils Absolute Auto 0.1 0.0 - 0.2 X10*3/uL [facility] NRBC Abs Auto 0.000 0.0 - 0.012 X10*3/uL [facility] Blood Venous blood specimen / Unknown 06/29/2024 10:47 AM EST 06/29/2024 2:21 PM EST Lucy Whitlock MD LAB BLOOD ORDERABLES Final Re sult Performing Organization Address [facility]/ZIP Co de Phone Number [facility] [address] [place] [phone] * Hepatitis C Antibody with Reflex to HCV, RNA, Quantitative, Real-Time PCR (05/31/2023 12:52 PM EST) Hepatitis C Antibody Nonreactive Nonreactive [facility] Comment:Antibodies to HCV no t detected; does not exclude early acuteHCV infection. Blood Venous blood specimen / Unknown 05/31/2023 12:52 PM EST 05/31/2023 2:26 PM EST us Lucy Whitlock MD LAB BLOOD ORDERABLES Final Re sult Performing Organization Address [facility] Co de Phone Number [facility] [address] [place] [phone] * HIV-1/2 Antigen and Antibodies, Fourth Generation, with Reflexes (05/31/2023 12:52 PM EST) HIV AB/AG Nonreactive Nonreactive [facility] Comment:HIV-1 p24 Ag and/or HIV-1/HIV-2 Ab not detected.A test result that is nonreactive does not exclude thepossibility of exposure to or infection with HIV-1 and/orHIV-2. Nonreactive results in this assay for individualswith prior exposure to HIV-1 and/or HIV-2 may be due toantigen and antibody levels that are below the limit ofdetection of this assay.The [employer] HIV Ag/Ab Combo assay result andsupplemental assay results should be interpreted inconjunction with the patient's clinical presentation,history and other laboratory results. If the results areinconsistent with clinical evidence, additional testing issuggested to confirm the result. Blood Venous blood specimen / Unknown 05/31/2023 12:52 PM EST 05/31/2023 2:26 PM EST us Lucy Whitlock MD LAB BLOOD ORDERABLES Final Re sult [facility] [address] [place] [address] [phone] from Last 3 Months or Most Recently Relevant to Health Maintenance [place] [address] [place] [address] - [facility] STAND ADULT DENTAL - [facility] Care Teams Ivory Polisher Relationship Specialty Start Date End Date Lucy Whitlock MD [address] [place] [phone] PCP - General Family Medicine 02/07/22 Markus Casillas NP Nurse Practitioner Psychiatry 05/31/23
[2024-06-29 15:46] LABS: Alkaline Phosphatase 88 U/L (39-117)
== END 2024-06-29 10:47 | disposition home or self-care (01) ==
LOC: HO.CHCLDS 10:46
PROVIDERS: Visit Provider Family Medicine
DX: G47.30 Sleep apnea, unspecified (principal); E66.813 Obesity, class 3; E66.01 Morbid (severe) obesity due to excess calories; Z68.41 Body mass index [BMI] 40.0-44.9, adult
CPT/HCPCS: 36415; 80053; 80061; 82728; 83540; 84443; 85025

== ENCOUNTER 2024-07-30 | Outpatient (REF) | payer OTHER, SELFPAY ==
[2024-08-01 11:29] LABS: C. trachomatis RNA TMA NOT DETECTED (NOT DETECTED); N. gonorrhoeae RNA TMA NOT DETECTED (NOT DETECTED)
[2024-08-04 13:49] LABS: HPV Genotype 16 Negative (Negative); HPV Genotype 18 Negative (Negative); HPV High Risk Negative (Negative)
[2024-08-07 13:14] LABS: Trichomonas (NAAT) NOT DETECTED
--- OUTSIDE RECORDS SUMMARY | 2024-11-24 16:07 | XMS_ITS | Encounter Summary ---
Author Organization [employer] Address [address] [facility] [address] [place] [address] Care Team Providers Care Chief Pharmacist Name Role Phone Lucy Whitlock MD Primary Care Provider [phone] Reason for Visit * Reason Onset Date Comments Referral 03/17/2024 Encounter Details Date Type Department Care Team ([facility] st Contact Info) Description 03/17/2024 Telephone [facility] [address] [place] [address] Lucy Whitlock MD [address] [place] [address] Referral Social History Tobacco Use Types Packs/Day [...] 03/20/2024 10:35 AM EDT Referral placed to [facility] eye care for routine eye exam. * Telephone Encounter - Sami Salamanca - 03/17/2024 11:12 AM EDT Tc from patient request a referral for the vision center there is no concerns at the moment documented in this encounter Plan of Treatment Not on file documented as of this encounter Visit Diagnoses Not on filedocumented in this encounter Additional Health Concerns Assessment Noted Time PHQ-9 Depression Total Score: 10 023 11:41 AM EST documented as of this encounter Care Teams Chief Pharmacist Relationship Specialty Start Date End Date Lucy Whitlock MD [address] [place] [address] PCP - General Family Medicine 02/07/22 Markus Casillas NP Nurse Practitioner Psychiatry 05/31/23 documented as of this encounter
== END 2024-07-30 00:01 | disposition home or self-care (01) ==
LOC: HO.LNP
PROVIDERS: Visit Provider Advanced Practice Midwife
DX: Z11.3 Encounter for screening for infections with a predominantly sexual mode of transmission (principal); Z13.89 Encounter for screening for other disorder
CPT/HCPCS: 87491; 87591; 87626; 87661; 88175